=== PATIENT | female | born 1975 | race Caucasian/White ===

== ENCOUNTER 2017-08-14 11:19 | Emergency (ER) | payer BC, MEDICARE ==
[~2017-08-14] VITALS: Ht 5703.2 cm; Wt 80.0 kg
[~2017-08-14 11:19] MED LIST: ALPR-13 PO; ALPR2TAB PO; BUTA1CAP17 PO; CANABIS INH; CLIN-79 PO; DIPH25CA83 PO; FLUR30CA13 PO; GABA600T PO; HYDR2TAB28 PO; LEVO125T PO; PHE12.5T PO; PRAZ2CAP2 PO; PROM25SU46 RC; QUET-1 PO; QUET200T3 PO; SUVO20TA PO; TOPI100T18 PO; TRAZ-91 PO; ZALE10CA29 PO; ZIPR80CA2 PO; [UNRECOGNIZED DRUG - OTHER] PO
[2017-08-14 12:51] LABS: BASOPHILS % (AUTO) 0.2 % (0-1); EOSINOPHILS # (AUTO) 0.1 X10'3 (0-0.9); EOSINOPHILS % (AUTO) 1.9 % (0-6); HEMATOCRIT 34.8 % (35.0-45.0); LYMPHOCYTES # (AUTO) 0.8 X10'3 (1.1-4.8); LYMPHOCYTES % (AUTO) 17.4 % (21-51); MEAN CORPUSCULAR HEMOGLOBIN 31.2 PG (27.0-31.0); MEAN CORPUSCULAR HGB CONC 34.5 % (33.0-36.5); MEAN CORPUSCULAR VOLUME 90.3 FL (78-98); MEAN PLATELET VOLUME 7.6 FL (7.4-10.4); MONOCYTES # (AUTO) 0.3 X10'3 (0-0.9); MONOCYTES % (AUTO) 5.4 % (2-12); NEUTROPHILS # (AUTO) 3.6 X10'3 (1.8-7.7); NEUTROPHILS % (AUTO) 75.1 % (42-75); PLATELET COUNT 264 X10'3 (140-440); RED BLOOD COUNT 3.86 X10'6 (4.20-5.60); RED CELL DISTRIBUTION WIDTH 15.1 % (11.5-14.5); WHITE BLOOD COUNT 4.8 X10'3 (4.5-11.0)
[2017-08-14 12:53] LABS: CLARITY,URINE CLEAR (Clear); COLOR,URINE YELLOW (Yellow); GLUCOSE, URINE NEGATIVE (Neg); KETONES,URINE NEGATIVE (Neg); LEUKOCYTE ESTERASE ,URINE NEGATIVE (Neg); NITRITES, URINE NEGATIVE (Neg); OCCULT BLOOD,URINE NEGATIVE (Neg); PH,URINE 6.5 (4.8-8.0); PROTEIN,URINE NEGATIVE (Neg); UA COLLECTION TYPE CLN CATCH MIDSTREAM; UROBILINOGEN,URINE 0.2 E.U/dL (0.2-1.0)
[2017-08-14 12:58] LABS: URINE HCG NEGATIVE (NEG)
[2017-08-14 13:05] LABS: URINE AMPHETAMINE SCREEN NEGATIVE (Neg); URINE BARBITUATE SCREEN NEGATIVE (Neg); URINE BENZODIAZEPINES SCREEN POSITIVE (Neg); URINE CANNABINOID SCREEN POSITIVE (Neg); URINE COCAINE SCREEN NEGATIVE (Neg); URINE METHADONE SCREEN NEGATIVE (Neg); URINE OPIATE SCREEN POSITIVE (Neg); URINE PHENCYCLIDINE SCREEN NEGATIVE (Neg)
[2017-08-14 13:13] LABS: ALANINE AMINOTRANSFERASE 239 U/L (12-78); ALBUMIN 3.4 G/DL (3.4-5.0); ALKALINE PHOSPHATASE 58 IU/L (46-116); ANION GAP 10 (8-16); ASPARTATE AMINO TRANSFERASE 107 U/L (10-37); BILIRUBIN,TOTAL 0.3 MG/DL (0.1-1.0); BLOOD UREA NITROGEN 13 MG/DL (7-18); CALCIUM 8.9 MG/DL (8.5-10.1); CHLORIDE 103 MMOL/L (99-107); CREATININE 0.65 MG/DL (0.40-0.90); GLUCOSE 126 MG/DL (70-104); POTASSIUM 3.9 MMOL/L (3.5-5.1); SODIUM 141 MMOL/L (135-145); TOTAL CARBON DIOXIDE 28.4 MMOL/L (24-32); TOTAL PROTEIN 6.9 G/DL (6.4-8.2); eGFR > 90 ML/MIN
[2017-08-14 13:14] LABS: ETHANOL < 0.010 GM/DL (0.0-0.010)
[2017-08-14] MEDS ORDERED: TIZA4TAB11 PO (13:46)
[2017-08-14] MEDS ORDERED: PRAZ2CAP2 PO (13:48)
[2017-08-14] MEDS ORDERED: TRAZ300T2 PO (13:48)
[2017-08-14] MEDS ORDERED: LEVO75TA PO (13:48)
[2017-08-14] MEDS ORDERED: HYDR4TAB45 PO (13:58)
[2017-08-14] MEDS ORDERED: HYDROmorphone 2mg tablet PO PRN (14:20)
[2017-08-14] MEDS ORDERED: butalbital/aspirin/caffeine (Fiorinal) 50/325/40mg capsule PO PRN (14:20)
[2017-08-14] MEDS ORDERED: proCHLORperazine 10 MG/2 ml inj IM ONE (14:25)
[2017-08-14] MEDS: HYDROmorphone 2mg tablet PO PRN ×2 (15:01→20:39)
[2017-08-14] MEDS: ALPRAZolam 0.5mg tablet PO PRN (15:20)
[2017-08-14] MEDS ORDERED: temazepam 15mg capsule PO PRN (16:30)
[2017-08-14] MEDS: proMETHazine 25mg tablet PO PRN (19:15)
[2017-08-14] MEDS: diphenhydrAMINE 25mg capsule PO SCH (20:24)
[2017-08-14] MEDS: tizanidine 4mg tablet PO PRN (20:26)
[2017-08-14] MEDS ORDERED: traZODone 150mg tablet PO SCH (21:00)
[2017-08-14] MEDS ORDERED: tizanidine 4mg tablet PO PRN (21:00)
[2017-08-14] MEDS ORDERED: gabapentin 300mg capsule PO SCH (21:00)
[2017-08-14] MEDS ORDERED: non-formulary drug (Ziprasidone Hcl (Geodon) 1 CAP) PO SCH (21:00)
[2017-08-14] MEDS ORDERED: ziprasidone 20mg capsule PO SCH ×2 (21:00)
[2017-08-14] MEDS ORDERED: [UNRECOGNIZED DRUG - OTHER] PO SCH (21:00)
[2017-08-14] MEDS ORDERED: PRAZOSIN HCL PO SCH (21:00)
[2017-08-14] MEDS ORDERED: prazosin 1mg capsule PO SCH (21:00)
[2017-08-14] MEDS ORDERED: ALPRAZolam 0.5mg tablet PO SCH (21:00)
[2017-08-14] MEDS: prazosin 1mg capsule PO SCH ×2 (21:10→21:33)
[2017-08-15] MEDS: tizanidine 4mg tablet PO PRN ×2 (04:58→13:25)
[2017-08-15] MEDS: ALPRAZolam 0.5mg tablet PO PRN ×3 (04:58→15:34)
[2017-08-15] MEDS: HYDROmorphone 2mg tablet PO PRN ×3 (04:59→15:57)
[2017-08-15 05:45] VITALS: BP 111/75
[2017-08-15] MEDS ORDERED: levoTHYROXINE 125mcg tablet PO SCH (07:30)
[2017-08-15] MEDS: diphenhydrAMINE 25mg capsule PO SCH ×2 (07:54→13:20)
[2017-08-15] MEDS ORDERED: levoTHYROXINE 75mcg tablet PO SCH (08:00)
[2017-08-15] MEDS: proMETHazine 25mg tablet PO PRN ×2 (10:39→15:34)
[2017-08-15] MEDS ORDERED: PROC5TAB PO (17:17)
[2017-08-15] MEDS ORDERED: TRAZ150T78 PO (17:17)
[2017-08-15] MEDS ORDERED: BUTA-281 PO (17:17)
[2017-08-15] MEDS ORDERED: BUSP10TA10 PO (17:17)
[2017-08-15] MEDS ORDERED: OMEP20TA5 PO (17:17)
[2017-08-15] MEDS ORDERED: GABA600T2 PO (17:17)
== END 2017-08-15 16:04 | disposition home or self-care (01) ==
LOC: ER 11:20
DX: M54.5 Low back pain (principal); G89.29 Other chronic pain; F12.10 Cannabis abuse, uncomplicated; F13.90 Sedative, hypnotic, or anxiolytic use, unspecified, uncomplicated; F11.90 Opioid use, unspecified, uncomplicated; G47.00 Insomnia, unspecified; G43.909 Migraine, unspecified, not intractable, without status migrainosus; Z88.1 Allergy status to other antibiotic agents; Z88.2 Allergy status to sulfonamides; Z88.8 Allergy status to other drugs, medicaments and biological substances
CPT/HCPCS: 36415; 72131; 72148; 73502; 80053; 80305; 80320; 81003; 81025; 84443; 85025; 96372; 99285; J0780; Q0163; Q0169

== ENCOUNTER 2023-05-22 11:55 | Emergency (ER) | payer OTHER, MEDICAID ==
[~2023-05-22] VITALS: Ht 177.8 cm; Wt 55.8 kg
[~2023-05-22 11:55] MED LIST changes: -ALPR-13 PO; -ALPR2TAB PO; +ARIP5TAB60 PO; +BUSP10TA10 PO; +BUTA-245 PO; -BUTA1CAP17 PO; -CANABIS INH; -CLIN-79 PO; +COL100C PO; +DIAZ5TAB22 PO; +DRON5CAP2 PO; +GABA600T13 PO; +HALO5TAB PO; -HYDR2TAB28 PO; +HYDR4TAB45 PO; +OMEP20TA43 PO; -PHE12.5T PO; +PROC5TAB10 PO; -PROM25SU46 RC; -QUET-1 PO; -QUET200T3 PO; -SUVO20TA PO; +TIZA4TAB11 PO; -TOPI100T18 PO; -TRAZ-91 PO; +TRAZ150T78 PO; -ZALE10CA29 PO; -ZIPR80CA2 PO; -[UNRECOGNIZED DRUG - OTHER] PO
[2023-05-22 12:40] LABS: URINE HCG NEGATIVE (NEG)
[2023-05-22 12:43] LABS: BILIRUBIN,URINE NEGATIVE (Neg); CLARITY,URINE CLEAR (Clear); COLOR,URINE YELLOW (Yellow); GLUCOSE, URINE NEGATIVE (Neg); KETONES,URINE NEGATIVE (Neg); LEUKOCYTE ESTERASE ,URINE NEGATIVE (Neg); NITRITES, URINE NEGATIVE (Neg); OCCULT BLOOD,URINE NEGATIVE (Neg); PROTEIN,URINE NEGATIVE (Neg); UROBILINOGEN,URINE 0.2 E.U/dL (0.2-1.0)
[2023-05-22 12:51] LABS: UA COLLECTION TYPE CLN CATCH MIDSTREAM
[2023-05-22 13:02] LABS: BASOPHILS % (AUTO) 0.4 % (0-1); EOSINOPHILS # (AUTO) 0.1 X10'3 (0-0.9); EOSINOPHILS % (AUTO) 1.7 % (0-6); HEMATOCRIT 41.2 % (35.0-45.0); HEMOGLOBIN 13.8 g/dl (12.0-16.0); LYMPHOCYTES # (AUTO) 0.8 X10'3 (1.1-4.8); MEAN CORPUSCULAR HEMOGLOBIN 31.9 PG (27.0-31.0); MEAN CORPUSCULAR HGB CONC 33.5 g/dL (33.0-36.5); MEAN CORPUSCULAR VOLUME 95.2 FL (78-98); MEAN PLATELET VOLUME 8.3 FL (7.4-10.4); MONOCYTES # (AUTO) 0.2 X10'3 (0-0.9); MONOCYTES % (AUTO) 6.3 % (2-12); NEUTROPHILS # (AUTO) 2.6 X10'3 (1.8-7.7); NEUTROPHILS % (AUTO) 69.6 % (42-75); PLATELET COUNT 194 X10'3 (140-440); RED BLOOD COUNT 4.33 X10'6 (4.20-5.60); RED CELL DISTRIBUTION WIDTH 13.8 % (11.5-14.5); WHITE BLOOD COUNT 3.8 X10'3 (4.5-11.0)
[2023-05-22 13:40] LABS: ALANINE AMINOTRANSFERASE 26 U/L (12-78); ALBUMIN/GLOBULIN RATIO 1.1 (1.1-1.5); ALKALINE PHOSPHATASE 63 IU/L (46-116); ANION GAP 8 (8-16); BILIRUBIN,TOTAL 0.4 MG/DL (0.1-1.0); BLOOD UREA NITROGEN 15 MG/DL (7-18); BUN/CREATININE RATIO 19.5 (10.0-20.0); CALCIUM 9.4 MG/DL (8.5-10.1); CHLORIDE 102 MMOL/L (99-107); CREATININE 0.77 MG/DL (0.40-0.90); GLUCOSE 95 MG/DL (70-104); LIPASE 35 U/L (16-77); SODIUM 140 MMOL/L (135-145); TOTAL CARBON DIOXIDE 29.6 MMOL/L (24-32); TOTAL PROTEIN 7.6 G/DL (6.4-8.2); eCRCL 78 ML/MIN; eGFR 80 ML/MIN
[2023-05-22 14:30] VITALS: TEMP 97.9
[2023-05-22 14:33] LABS: ASPARTATE AMINO TRANSFERASE 31 U/L (10-37); POTASSIUM 4.5 MMOL/L (3.5-5.1)
[2023-05-22] MEDS ORDERED: morphine 4 MG/ML inj SYRINge IV ONE (16:00)
[2023-05-22] MEDS ORDERED: ondansetron/PF 4mg/2ml inj IV ONE (16:00)
[2023-05-22] MEDS ORDERED: iohexol 300mg/ml 100ml inj. ONE (16:07)
[2023-05-22 17:13] VITALS: BP 128/63; PULSE 78; RESP 16; O2SAT 95
== END 2023-05-22 20:15 | disposition left against medical advice (07) ==
LOC: ER 11:56
DX: R10.11 Right upper quadrant pain (principal); R10.31 Right lower quadrant pain; K59.00 Constipation, unspecified
CPT/HCPCS: 36415; 74018; 74177; 80053; 81003; 81025; 83690; 85025; 96374; 99285; J2270; J3490; Q9967

== ENCOUNTER 2023-10-02 10:46 | Emergency (ER) | payer OTHER, MEDICAID ==
[~2023-10-02] VITALS: Ht 172.7 cm; Wt 65.0 kg
[~2023-10-02 10:46] MED LIST changes: +ARIP5TAB31 PO; -ARIP5TAB60 PO
[2023-10-02 13:53] LABS: BASOPHILS % (AUTO) 0.2 % (0-1); EOSINOPHILS # (AUTO) 0.1 X10'3 (0-0.9); EOSINOPHILS % (AUTO) 0.9 % (0-6); HEMATOCRIT 45.2 % (35.0-45.0); HEMOGLOBIN 14.7 g/dl (12.0-16.0); LYMPHOCYTES # (AUTO) 1.3 X10'3 (1.1-4.8); LYMPHOCYTES % (AUTO) 15.1 % (21-51); MEAN CORPUSCULAR HEMOGLOBIN 31.3 PG (27.0-31.0); MEAN CORPUSCULAR HGB CONC 32.6 g/dL (33.0-36.5); MEAN CORPUSCULAR VOLUME 95.9 FL (78-98); MONOCYTES # (AUTO) 0.4 X10'3 (0-0.9); MONOCYTES % (AUTO) 4.2 % (2-12); NEUTROPHILS % (AUTO) 79.6 % (42-75); PLATELET COUNT 178 X10'3 (140-440); RED BLOOD COUNT 4.71 X10'6 (4.20-5.60); RED CELL DISTRIBUTION WIDTH 13.7 % (11.5-14.5); WHITE BLOOD COUNT 8.8 X10'3 (4.5-11.0)
[2023-10-02] MEDS: ziprasidone IM 20mg inj **IM only IM ONE ×2 (13:53→15:57)
[2023-10-02 14:04] LABS: ALBUMIN 4.2 G/DL (3.4-5.0); ANION GAP 11 (8-16); BLOOD UREA NITROGEN 13 MG/DL (7-18); BUN/CREATININE RATIO 10.8 (10.0-20.0); CALCIUM 9.2 MG/DL (8.5-10.1); CHLORIDE 96 MMOL/L (99-107); ETHANOL < 10 MG/DL (<10); GLUCOSE 123 MG/DL (70-104); SODIUM 131 MMOL/L (135-145); TOTAL CARBON DIOXIDE 24.4 MMOL/L (24-32); eCRCL 57 ML/MIN; eGFR 48 ML/MIN
[2023-10-02] MEDS: normal saline 1000ML IV soln IVB ONE (14:08)
[2023-10-02] MEDS: LORazepam 1 MG tablet PO ONE (16:29)
[2023-10-02 17:53] LABS: URINE HCG NEGATIVE (NEG)
[2023-10-02 18:02] LABS: URINE AMPHETAMINE SCREEN NEGATIVE (Neg); URINE BARBITUATE SCREEN NEGATIVE (Neg); URINE BENZODIAZEPINES SCREEN NEGATIVE (Neg); URINE CANNABINOID SCREEN POSITIVE (Neg); URINE COCAINE SCREEN NEGATIVE (Neg); URINE METHADONE SCREEN POSITIVE (Neg); URINE OPIATE SCREEN NEGATIVE (Neg); URINE PHENCYCLIDINE SCREEN NEGATIVE (Neg)
[2023-10-02] MEDS: traZODone 150mg tablet PO ONE (21:50)
[2023-10-02] MEDS: acetaminophen 325mg tablet PO ONE (22:01)
[2023-10-02] MEDS: haloperidol 5mg tablet PO ONE (22:02)
[2023-10-02] MEDS ORDERED: proCHLORperazine 5mg tablet PO PRN (22:30)
[2023-10-02] MEDS: Melatonin 3mg tablet PO SCH (22:35)
[2023-10-02] MEDS ORDERED: TRAZ300T2 PO (22:38)
[2023-10-02] MEDS ORDERED: TRAZ150T78 PO (22:38)
[2023-10-02] MEDS: dexamethasone sod phosphate 10mg/ml inj PO STA (23:07)
[2023-10-02] MEDS: traZODone 150mg tablet PO SCH (23:08)
[2023-10-02] MEDS: gabapentin 300mg capsule PO ONE (23:09)
[2023-10-03] MEDS: ALPRAZolam 0.5mg tablet PO ONE (00:57)
[2023-10-03 04:03] VITALS: BP 127/77; PULSE 56; RESP 14; TEMP 98.4; O2SAT 96
[2023-10-03 04:22] LABS: BILIRUBIN,URINE NEGATIVE (Neg); CLARITY,URINE SLIGHTLY CLOUDY (Clear); COLOR,URINE STRAW (Yellow); GLUCOSE, URINE NEGATIVE (Neg); KETONES,URINE NEGATIVE (Neg); LEUKOCYTE ESTERASE ,URINE SMALL (Neg); NITRITES, URINE NEGATIVE (Neg); OCCULT BLOOD,URINE NEGATIVE (Neg); PROTEIN,URINE NEGATIVE (Neg); UROBILINOGEN,URINE 0.2 E.U/dL (0.2-1.0)
[2023-10-03 04:34] LABS: UA COLLECTION TYPE CLN CATCH MIDSTREAM
[2023-10-03 04:35] LABS: BACTERIA,URINE FEW /HPF (Neg); RBC,URINE 0-2 /HPF (0-2); SQUAMOUS EPITHELIAL CELL,UR FEW /LPF (FEW); TRANSITIONAL EPI CELLS,URINE FEW /HPF; WBC,URINE 0-4 /HPF (0-4)
[2023-10-03] MEDS ORDERED: PRAZ5CAP2 PO (07:12)
[2023-10-03] MEDS ORDERED: ALPR0.5T8 PO (07:12)
[2023-10-03] MEDS ORDERED: LYR25C PO (07:12)
[2023-10-03] MEDS ORDERED: METH-603 PO (07:12)
[2023-10-03] MEDS ORDERED: Melatonin 3mg tablet PO SCH (21:00)
== END 2023-10-03 09:18 | disposition home or self-care (01) ==
LOC: ER 10:47
DX: R45.88 Nonsuicidal self-harm (principal); Z20.822 Contact with and (suspected) exposure to COVID-19; R46.1 Bizarre personal appearance; G43.909 Migraine, unspecified, not intractable, without status migrainosus; Z88.2 Allergy status to sulfonamides; Z88.1 Allergy status to other antibiotic agents; Z88.8 Allergy status to other drugs, medicaments and biological substances; Z79.899 Other long term (current) drug therapy; Z98.890 Other specified postprocedural states; Z90.710 Acquired absence of both cervix and uterus
CPT/HCPCS: 36415; 70450; 73610; 80048; 80305; 80320; 81001; 81025; 85025; 87088; 87811; 93005; 96372; 99285; J1100; J3486; J7030; 96360; A6449

== ENCOUNTER 2023-11-05 17:23 | Emergency (ER) | payer OTHER, MEDICAID ==
[~2023-11-05] VITALS: Ht 175.3 cm; Wt 70.0 kg
[~2023-11-05 17:23] MED LIST changes: +ALPR0.5T8 PO; -ARIP5TAB31 PO; -BUSP10TA10 PO; -BUTA-245 PO; -COL100C PO; -DIAZ5TAB22 PO; -DIPH25CA83 PO; -DRON5CAP2 PO; -FLUR30CA13 PO; -GABA600T PO; -GABA600T13 PO; -HALO5TAB PO; -HYDR4TAB45 PO; -LEVO125T PO; +LYR25C PO; +METH-603 PO; -OMEP20TA43 PO; -PRAZ2CAP2 PO; +PRAZ5CAP2 PO; -TIZA4TAB11 PO
[2023-11-05] MEDS ORDERED: diphenhydrAMINE 50 mg/ml inj IM ONE (17:30)
[2023-11-05] MEDS ORDERED: LORazepam 2 mg/ml vial IM ONE (17:30)
[2023-11-05] MEDS: diazepam inj 5 MG/ML inj. IM ONE (17:50)
[2023-11-05] MEDS: haloperidol lactate 5mg/ml inj IM PRN (17:50)
[2023-11-05 18:22] LABS: BASOPHILS % (AUTO) 0.3 % (0-1); EOSINOPHILS % (AUTO) 0.1 % (0-6); HEMATOCRIT 38.9 % (35.0-45.0); HEMOGLOBIN 13.2 g/dl (12.0-16.0); LYMPHOCYTES # (AUTO) 0.6 X10'3 (1.1-4.8); LYMPHOCYTES % (AUTO) 6.7 % (21-51); MEAN CORPUSCULAR HEMOGLOBIN 31.5 PG (27.0-31.0); MEAN CORPUSCULAR HGB CONC 34.1 g/dL (33.0-36.5); MEAN CORPUSCULAR VOLUME 92.5 FL (78-98); MEAN PLATELET VOLUME 8.3 FL (7.4-10.4); MONOCYTES # (AUTO) 0.7 X10'3 (0-0.9); MONOCYTES % (AUTO) 6.9 % (2-12); NEUTROPHILS # (AUTO) 8.3 X10'3 (1.8-7.7); PLATELET COUNT 220 X10'3 (140-440); RED BLOOD COUNT 4.21 X10'6 (4.20-5.60); RED CELL DISTRIBUTION WIDTH 13.6 % (11.5-14.5); WHITE BLOOD COUNT 9.6 X10'3 (4.5-11.0)
[2023-11-05 18:30] LABS: ALBUMIN 4.4 G/DL (3.4-5.0); ANION GAP 13 (8-16); BLOOD UREA NITROGEN 19 MG/DL (7-18); CALCIUM 9.1 MG/DL (8.5-10.1); CHLORIDE 99 MMOL/L (99-107); CREATININE 1.72 MG/DL (0.40-0.90); ETHANOL < 10 MG/DL (<10); GLUCOSE 122 MG/DL (70-104); POTASSIUM 3.2 MMOL/L (3.5-5.1); SODIUM 137 MMOL/L (135-145); TOTAL CARBON DIOXIDE 24.9 MMOL/L (24-32); eCRCL 41 ML/MIN; eGFR 32 ML/MIN
[2023-11-05] MEDS: normal saline 1000ml 1,000 ML IV ONE ×2 (18:35)
[2023-11-05 18:43] LABS: URINE HCG NEGATIVE (NEG)
[2023-11-05 19:20] LABS: CLARITY,URINE SLIGHTLY CLOUDY (Clear); COLOR,URINE ORANGE (Yellow); UA COLLECTION TYPE NON-SPECIFIED
[2023-11-05 19:34] LABS: MUCUS STRANDS NONE SEEN /LPF (Neg); SQUAMOUS EPITHELIAL CELL,UR MANY /LPF (FEW)
[2023-11-05 19:35] LABS: BACTERIA,URINE 3+ /HPF (Neg); TRANSITIONAL EPI CELLS,URINE FEW /HPF
[2023-11-05 19:40] LABS: CAL OXALATE CRYSTALS FEW /HPF (NEGATIVE); COARSE GRANULAR CAST 0-3 /LPF (NEGATIVE)
[2023-11-05 19:42] LABS: RENAL CELLS, URINE FEW /HPF
[2023-11-05 19:52] LABS: URINE AMPHETAMINE SCREEN NEGATIVE (Neg); URINE BARBITUATE SCREEN NEGATIVE (Neg); URINE BENZODIAZEPINES SCREEN NEGATIVE (Neg); URINE CANNABINOID SCREEN POSITIVE (Neg); URINE COCAINE SCREEN NEGATIVE (Neg); URINE METHADONE SCREEN POSITIVE (Neg); URINE OPIATE SCREEN NEGATIVE (Neg); URINE PHENCYCLIDINE SCREEN NEGATIVE (Neg)
[2023-11-05] MEDS: traZODone 50mg tablet PO ONE (22:05)
[2023-11-05] MEDS: ALPRAZolam 0.5mg tablet PO ONE (22:05)
[2023-11-06] MEDS ORDERED: TRAZ-256 PO (06:08)
[2023-11-06] MEDS: ALPRAZolam 0.5mg tablet PO PRN (06:57)
[2023-11-06] MEDS ORDERED: methadone 10mg tablet PO SCH (08:00)
[2023-11-06] MEDS: pregabalin 25mg capsule PO SCH (08:00)
[2023-11-06 08:17] LABS: PHOSPHORUS 4.1 MG/DL (2.3-4.5)
[2023-11-06] MEDS: methadone 10mg tablet PO SCH (10:41)
[2023-11-06] MEDS: POTASSIUM CHLORIDE 20 MEQ/15 ML oral solution PO ONE (11:07)
[2023-11-06] MEDS: ondansetron 4mg rapidly disintigrating tab PO ONE (16:29)
[2023-11-06] MEDS: proCHLORperazine 10mg tablet PO ONE ×2 (16:58→21:16)
[2023-11-06] MEDS ORDERED: traZODone 50mg tablet PO SCH (20:00)
[2023-11-06] MEDS: prazosin 5mg capsule PO SCH (21:00)
[2023-11-06] MEDS: traZODone 50mg tablet PO SCH (21:33)
[2023-11-06] MEDS: traZODone 150mg tablet PO SCH (21:33)
[2023-11-07 06:30] VITALS: BP 101/66; PULSE 61; TEMP 97.4; O2SAT 94
[2023-11-07 07:44] VITALS: RESP 16
[2023-11-07] MEDS ORDERED: cholecalciferol (vitamin D3) 1,000 unit (25mcg) tablet PO SCH (08:00)
[2023-11-07 08:58] LABS: THYROID STIMULATING HORMONE 1.02 ulU/ml (0.34-4.50)
[2023-11-07] MEDS ORDERED: bisacodyl 5mg tablet.DR PO PRN (09:05)
[2023-11-07] MEDS: potassium Cl 20 mEq SR tablet PO STA (12:30)
[2023-11-07] MEDS: magnesium hydroxide 30ml (MOM) UD suspension PO PRN (13:58)
== END 2023-11-07 14:35 ==
LOC: ER 17:23
DX: F29 Unspecified psychosis not due to a substance or known physiological condition (principal); Z20.822 Contact with and (suspected) exposure to COVID-19; G43.909 Migraine, unspecified, not intractable, without status migrainosus; J45.909 Unspecified asthma, uncomplicated; G89.29 Other chronic pain; M54.9 Dorsalgia, unspecified; F41.9 Anxiety disorder, unspecified; F17.210 Nicotine dependence, cigarettes, uncomplicated; F32.A Depression, unspecified; Z90.49 Acquired absence of other specified parts of digestive tract; Z90.710 Acquired absence of both cervix and uterus; Z98.890 Other specified postprocedural states; Z88.1 Allergy status to other antibiotic agents; Z88.2 Allergy status to sulfonamides; Z88.8 Allergy status to other drugs, medicaments and biological substances; Z79.899 Other long term (current) drug therapy
CPT/HCPCS: 36415; 80069; 80305; 80320; 81001; 81025; 84443; 85025; 87811; 93005; 96372; 99285; J1630; J3360; J7030; Q0164; 80048; C1758